=== PATIENT | female | born 1940 | race Caucasian/White ===

== ENCOUNTER 2023-10-24 17:16 | Emergency (ER) | payer BC ==
[2023-10-24 17:29] VITALS: RESP 16; BMI 36.9
[2023-10-24] MEDS ORDERED: SODIUM PHOSPHATE/NA BIPHOS 133 ML ENEMA PR ONE (18:11)
[2023-10-24 18:44] LABS: BASO % 0.4 % (0-2.0); EOS % 0.6 % (0-4.5); HEMATOCRIT 44.9 % (32.4-45.2); LYMPH % 12.8 % (8-40); MCH 30.9 pg (25.7-33.7); MCHC 33.4 g/dl (32.0-36.0); MEAN CELL VOLUME 92.4 fl (80-96); MEAN PLT VOLUME 7.8 fl (7.5-11.1); MONO % 5.6 % (3.8-10.2); NEUT % 80.6 % (42.8-82.8); PLATELET COUNT 270 10^3/uL (134-434); RBC 4.86 M/mm3 (3.60-5.2); RDW 12.6 % (11.6-15.6); WHITE BLOOD COUNT 10.5 K/mm3 (4.0-10.0)
[2023-10-24 19:04] LABS: POTASSIUM 3.8 mmol/L (3.5-5.1)
[2023-10-24 19:07] LABS: CALCIUM 9.2 mg/dL (8.5-10.1)
[2023-10-24 19:08] LABS: ALBUMIN 3.6 g/dl (3.4-5.0); BLOOD UREA NITROGEN 10.2 mg/dL (7-18)
[2023-10-24 19:11] LABS: CREATININE 0.9 mg/dL (0.55-1.3)
[2023-10-24 19:13] LABS: BILIRUBIN,TOTAL 0.5 mg/dL (0.2-1); TOT PROT 6.7 g/dl (6.4-8.2)
[2023-10-24 19:30] VITALS: BP 117/57; PULSE 67; TEMP 98.8
[2023-10-24 21:49] LABS: EPI CELLS 13 /uL (0-25.1); HYALINE CASTS 0 /uL (0-3.1); PH,URINE 5.5 (5.0-8.0); URINE APPEARANCE CLEAR; URINE BACTERIA 348 /uL (0-1359); URINE BILIRUBIN NEGATIVE (NEGATIVE); URINE COLOR YELLOW; URINE GLUCOSE (UA) NEGATIVE (NEGATIVE); URINE KETONE NEGATIVE (NEGATIVE); URINE LEUK ESTERASE 2+ (NEGATIVE); URINE NITRITE NEGATIVE (NEGATIVE); URINE PROTEIN NEGATIVE (NEGATIVE); URINE RBC 18 /uL (0-23.9); URINE UROBILINOGEN 0.2 mg/dL (0.2-1.0); URINE WBC 66 /uL (0-25.8)
[2023-10-24] MEDS ORDERED: CEFUROXIME AXETIL 500 MG TABLET PO ONE (22:40)
== END 2023-10-24 23:23 | disposition home or self-care (01) ==
LOC: JER 17:16
DX: K59.00 Constipation, unspecified (principal); R33.9 Retention of urine, unspecified; K62.89 Other specified diseases of anus and rectum; R10.30 Lower abdominal pain, unspecified
CPT/HCPCS: 36415; 74019-TC-FY; 80053; 81003; 85025; 87077; 87086; 99284-25